=== PATIENT | male | born 1985 | race Two or more races ===

== ENCOUNTER 2017-09-06 21:40 | Emergency (ER) | payer SELFPAY ==
[~2017-09-06] VITALS: Ht 170.2 cm; Wt 79.4 kg
[2017-09-06] MEDS ORDERED: HYDROMORPHONE 1 MG/1 ML DISP.SYRIN IM ONE (22:00)
[2017-09-06] MEDS ORDERED: ONDANSETRON 4 MG/2 ML VIAL IM ONE (22:00)
--- NOTE | 2017-09-06 22:02 | NUR ---
[employer] AT BEDSIDE.
--- NOTE | 2017-09-06 22:08 | NUR ---
OFFICER DORA SPEAKING WITH PATIENT
[2017-09-06] MEDS ORDERED: HYDROMORPHONE 2 MG/1 ML DISP.SYRIN ONE (22:30)
[2017-09-06] MEDS ORDERED: ONDANSETRON 4 MG/2 ML VIAL ONE (22:30)
[2017-09-06] MEDS ORDERED: OXYCODONE/APAP 5-325 MG TABLET PO ONE (23:30)
[2017-09-06] MEDS ORDERED: OXYCODONE/APAP 5-325 MG TABLET ONE (23:33)
[2017-09-07 00:15] VITALS: BP 148/91
== END 2017-09-07 00:16 | disposition home or self-care (01) ==
LOC: ER 21:42
DX: S52.302A Unspecified fracture of shaft of left radius, initial encounter for closed fracture (principal); Z59.0 Homelessness; V13.4XXA Pedal cycle driver injured in collision with car, pick-up truck or van in traffic accident, initial encounter; Y93.55 Activity, bike riding; Y92.410 Unspecified street and highway as the place of occurrence of the external cause; Y99.8 Other external cause status
CPT/HCPCS: 73090; A4663; J1170; J2405